=== PATIENT | male | born 1995 | race Caucasian/White ===

== ENCOUNTER 2021-01-31 15:05 | Emergency (ER) | payer OTHER ==
[~2021-01-31] VITALS: Ht 187.9 cm; Wt 99.8 kg
== END 2021-01-31 21:02 | disposition home or self-care (01) ==
LOC: ED 15:05
DX: T23.232A Burn of second degree of multiple left fingers (nail), not including thumb, initial encounter (principal); W86.8XXA Exposure to other electric current, initial encounter; Y93.89 Activity, other specified; Y92.89 Other specified places as the place of occurrence of the external cause; Y99.8 Other external cause status